=== PATIENT | male | born 1935 | race Caucasian/White ===

== ENCOUNTER 2017-01-23 18:12 | Inpatient (IN) ==
[2017-01-23] MEDS ORDERED: cefTRIAXone 1,000 MG in SODIUM CHLORIDE 0.9% 100 ML IV STA (19:08)
[2017-01-23] MEDS ORDERED: methylPREDNISolone SOD SUC 125 MG/2 ML VIAL IV STA (19:08)
[2017-01-23] MEDS ORDERED: FUROSEMIDE 100 MG/10 ML VIAL IV STA (19:08)
[2017-01-23] MEDS ORDERED: ONDANSETRON 4 MG/2 ML VIAL IV STA (19:08)
[2017-01-23] MEDS ORDERED: ALBUTEROL 2.5 MG/3 ML NEB RESP TX ONE (19:23)
[2017-01-23] MEDS ORDERED: ALBUTEROL 2.5 MG/3 ML NEB RESP TX SCH (19:30)
[2017-01-23 20:10] LABS: Basophils % 0.6 % (0.0-0.8); Eosinophils # 0.1 10*3/uL (0.0-0.87); Eosinophils % 2.2 % (0.00-10.9); Hematocrit 28.9 VOL% (42.0-52.0); Hemoglobin 9.3 GM/DL (14.0-18.0); Immature Granulocytes % 0.6 %; Immature Granulocytes Absolute 0.03 #; Lymphocytes # 1.3 10*3/uL (1.4-4.0); Lymphocytes % 28.1 % (21.2-54.2); Mean Corpuscular HGB Conc 32.2 GM/DL (32-36); Mean Corpuscular Hemoglobin 31 PG (27-34); Mean Corpuscular Volume 95.1 FL (87-102); Mean Platelet Volume 11.5 FL (9.6-12.0); Monocytes # 0.4 10*3/uL (0.11-0.8); Monocytes % 7.8 % (1.7-12.7); Neutrophils # 2.8 10*3/uL (1.4-7.4); Neutrophils % 60.7 % (38.7-73.9); Platelet Count 112 T/CUMM (130-400); Red Blood Count 3.04 MC/CUMM (3.8-5.5); Red Cell Distribution Width 15.9 % (9.3-17.3); White Blood Count 4.6 T/CUMM (4-12)
[2017-01-23 20:30] LABS: Albumin 2.1 G/DL (3.4-5.0); Bilirubin,Total 0.9 MG/DL (0.2-1.0); Calcium 8.1 MG/DL (8.5-10.1); Potassium 4.4 MMOL/L (3.5-5.1); Total Protein 5.6 G/DL (6.4-8.3); Troponin I Only 0.024 NG/ML (0.00-0.045)
[2017-01-23] MEDS ORDERED: cefTRIAXone 1,000 MG VIAL ONE (20:37)
[2017-01-23] MEDS ORDERED: FUROSEMIDE 100 MG/10 ML VIAL ONE (20:37)
[2017-01-23] MEDS ORDERED: methylPREDNISolone SOD SUC 125 MG/2 ML VIAL ONE (20:37)
[2017-01-23] MEDS ORDERED: ONDANSETRON 4 MG/2 ML VIAL ONE (20:37)
[2017-01-23 20:58] LABS: INR 1.2; PT Patient Result 12.7 SECS
[2017-01-23 21:22] LABS: Allen Test Positive
[2017-01-23 21:23] LABS: ABG Base Excess 0.3 MMOL/L (-2.5-2.5); ABG HCO3 24.7 MMOL/L (20-26); ABG Oxygen Saturation 94.6 % (95-100); ABG PCO2 38.6 MM HG (35-48); ABG PH 7.415 (7.35-7.45); ABG PO2 74.7 MM HG (80-95); ABG TCO2 22.4 MMOL/L (23-27)
[2017-01-23 22:11] LABS: Apearance,Urine CLEAR (Clear); Bilirubin,Urine Negative (Negative); Blood, Urine Negative (Negative); Glucose,Urine (UA) Negative (Negative); Ketones,Urine Negative (Negative); Mucus,Urine Occasional /LPF (Occasional); Nitrite,Urine Negative (Negative); Protein,Urine Negative; RBC,Urine <1 /HPF (0-4); Urine Color Yellow (Yellow); Urine Specific Gravity 1.012 (1.001-1.035); WBC,Urine <1 /HPF (0-6)
[2017-01-23] MEDS ORDERED: NITROGLYCERIN SL 0.4 MG TABLET SL PRN (23:03)
[2017-01-23] MEDS ORDERED: traMADol 50 MG TABLET PO PRN (23:03)
[2017-01-23] MEDS ORDERED: ACETAMINOPHEN 325 MG TABLET PO PRN (23:17)
[2017-01-23] MEDS ORDERED: ONDANSETRON 4 MG/2 ML VIAL IV PRN (23:17)
[2017-01-23] MEDS ORDERED: methylPREDNISolone SOD SUC 40 MG/1 ML VIAL ONE (23:40)
[2017-01-23] MEDS ORDERED: AZITHROMYCIN 500 MG VIAL IV ONE (23:40)
[2017-01-23] MEDS: AZITHROMYCIN INJ 500 MG in SODIUM CHLORIDE 0.9% 250 ML IV SCH (23:45)
[2017-01-23] MEDS: MONTELUKAST 10 MG TABLET PO SCH (23:50)
[2017-01-24] MEDS: methylPREDNISolone SOD SUC 40 MG/1 ML VIAL IV SCH ×3 (01:03→15:15)
[2017-01-24] MEDS: cefTRIAXone 1,000 MG in SYRINGE 1 EACH IV SCH ×2 (01:04→21:17)
[2017-01-24] MEDS: ALBUTEROL/IPRATROPIUM 3 ML NEB RESP TX SCH ×6 (01:15→19:19)
[2017-01-24 04:43] LABS: Hematocrit 27.8 VOL% (42.0-52.0); Immature Granulocytes % 0.6 %; Immature Granulocytes Absolute 0.02 #; Lymphocytes # 0.5 10*3/uL (1.4-4.0); Lymphocytes % 14.1 % (21.2-54.2); Mean Corpuscular HGB Conc 32.4 GM/DL (32-36); Mean Corpuscular Hemoglobin 31 PG (27-34); Mean Corpuscular Volume 94.6 FL (87-102); Mean Platelet Volume 11.8 FL (9.6-12.0); Monocytes % 1.2 % (1.7-12.7); Neutrophils # 2.9 10*3/uL (1.4-7.4); Neutrophils % 84.1 % (38.7-73.9); Platelet Count 109 T/CUMM (130-400); Red Blood Count 2.94 MC/CUMM (3.8-5.5); White Blood Count 3.4 T/CUMM (4-12)
[2017-01-24 05:11] LABS: Elliptocytes Few; Giant Platelets Few; Hypochromasia 1+; Lymphocytes 14 % (20-55); Platelet Estimate Decreased; Segmented Neutrophils 85 % (50-85); Total Cells Counted 100
[2017-01-24 05:16] LABS: Bilirubin,Total 0.8 MG/DL (0.2-1.0); Calcium 7.8 MG/DL (8.5-10.1); Osmolality,Calculated 285.3 MOS/KG (273-304); Potassium 4.3 MMOL/L (3.5-5.1)
[2017-01-24] MEDS: LEVOTHYROXINE 50 MCG TABLET PO SCH (06:31)
[2017-01-24] MEDS ORDERED: RIVAROXABAN 20 MG TABLET PO SCH (08:00)
[2017-01-24] MEDS ORDERED: POTASSIUM CHLORIDE 20 MEQ TABLET PO ONE (09:26)
[2017-01-24] MEDS ORDERED: methylPREDNISolone SOD SUC 40 MG/1 ML VIAL ONE (09:26)
[2017-01-24] MEDS ORDERED: ASPIRIN 325 MG TABLET ONE (09:26)
[2017-01-24] MEDS ORDERED: FUROSEMIDE 20 MG TABLET ONE (09:26)
[2017-01-24] MEDS ORDERED: PANTOPRAZOLE 40 MG TABLET PO ONE (09:26)
[2017-01-24] MEDS: CYANOCOBALAMIN 500 MCG TABLET PO SCH (09:41)
[2017-01-24] MEDS: FUROSEMIDE 20 MG TABLET PO SCH (09:41)
[2017-01-24] MEDS: PANTOPRAZOLE 40 MG TABLET PO SCH (09:41)
[2017-01-24] MEDS: ASPIRIN EC 325 MG TABLET PO SCH (09:42)
[2017-01-24] MEDS: CALCIUM (CARBONATE)/VITAMIN D 600 MG-400 UNIT TABLET PO SCH (09:42)
[2017-01-24] MEDS: POTASSIUM CHLORIDE 20 MEQ TABLET PO SCH (09:43)
[2017-01-24] MEDS: DULoxetine 30 MG CAPSULE PO SCH (09:43)
[2017-01-24] MEDS: fentaNYL 25 MCG/HR PATCH TRANSDERM SCH (15:14)
[2017-01-24] MEDS: MONTELUKAST 10 MG TABLET PO SCH (21:18)
[2017-01-25] MEDS: ALBUTEROL/IPRATROPIUM 3 ML NEB RESP TX SCH ×8 (00:18→20:17)
[2017-01-25] MEDS: AZITHROMYCIN INJ 500 MG in SODIUM CHLORIDE 0.9% 250 ML IV SCH (02:18)
[2017-01-25] MEDS: LEVOTHYROXINE 50 MCG TABLET PO SCH (08:07)
[2017-01-25] MEDS ORDERED: ALBUTEROL/IPRATROPIUM 3 ML NEB RESP TX PRN (11:01)
[2017-01-25] MEDS: methylPREDNISolone SOD SUC 40 MG/1 ML VIAL IV SCH ×4 (11:06→23:55)
[2017-01-25] MEDS: NICOTINE 14 MG/24 HR PATCH TRANSDERM SCH (14:26)
[2017-01-25] MEDS: POTASSIUM CHLORIDE 20 MEQ TABLET PO SCH (15:02)
[2017-01-25] MEDS: DULoxetine 30 MG CAPSULE PO SCH (15:02)
[2017-01-25] MEDS: FUROSEMIDE 20 MG TABLET PO SCH (15:03)
[2017-01-25] MEDS: ASPIRIN EC 325 MG TABLET PO SCH (15:03)
[2017-01-25] MEDS: CYANOCOBALAMIN 500 MCG TABLET PO SCH (15:03)
[2017-01-25] MEDS: CALCIUM (CARBONATE)/VITAMIN D 600 MG-400 UNIT TABLET PO SCH (15:03)
[2017-01-25] MEDS: POLYETHYLENE GLYCOL POWDER 17 GM PACK PO PRN (15:04)
[2017-01-25] MEDS: PANTOPRAZOLE 40 MG TABLET PO SCH (15:04)
[2017-01-25] MEDS: MONTELUKAST 10 MG TABLET PO SCH (21:32)
[2017-01-25] MEDS: cefTRIAXone 1,000 MG in SYRINGE 1 EACH IV SCH (21:34)
[2017-01-26] MEDS: AZITHROMYCIN INJ 500 MG in SODIUM CHLORIDE 0.9% 250 ML IV SCH ×2 (00:01→23:56)
[2017-01-26] MEDS: ALBUTEROL/IPRATROPIUM 3 ML NEB RESP TX SCH ×4 (01:00→20:10)
[2017-01-26] MEDS: LEVOTHYROXINE 50 MCG TABLET PO SCH (07:39)
[2017-01-26] MEDS: methylPREDNISolone SOD SUC 40 MG/1 ML VIAL IV SCH ×3 (07:40→23:52)
[2017-01-26 08:32] LABS: Hematocrit 28.3 VOL% (42.0-52.0)
[2017-01-26] MEDS: CALCIUM (CARBONATE)/VITAMIN D 600 MG-400 UNIT TABLET PO SCH (09:06)
[2017-01-26] MEDS: POTASSIUM CHLORIDE 20 MEQ TABLET PO SCH (09:07)
[2017-01-26] MEDS: NICOTINE 14 MG/24 HR PATCH TRANSDERM SCH (09:07)
[2017-01-26] MEDS: PANTOPRAZOLE 40 MG TABLET PO SCH (09:07)
[2017-01-26] MEDS: POLYETHYLENE GLYCOL POWDER 17 GM PACK PO PRN (09:07)
[2017-01-26] MEDS: FUROSEMIDE 20 MG TABLET PO SCH (09:07)
[2017-01-26] MEDS: DULoxetine 30 MG CAPSULE PO SCH (09:07)
[2017-01-26] MEDS: CYANOCOBALAMIN 500 MCG TABLET PO SCH (09:07)
[2017-01-26] MEDS: ASPIRIN EC 325 MG TABLET PO SCH (09:37)
[2017-01-26] MEDS ORDERED: MAGNESIUM HYDROXIDE SUSP 30 ML UDCUP PO ONE (11:48)
[2017-01-26] MEDS ORDERED: LORazepam 0.5 MG TABLET PO PRN (14:10)
[2017-01-26] MEDS: cefTRIAXone 1,000 MG in SYRINGE 1 EACH IV SCH (21:20)
[2017-01-26] MEDS: MONTELUKAST 10 MG TABLET PO SCH (21:26)
[2017-01-27] MEDS: ALBUTEROL/IPRATROPIUM 3 ML NEB RESP TX SCH ×4 (00:50→19:50)
[2017-01-27] MEDS: LEVOTHYROXINE 50 MCG TABLET PO SCH (06:49)
[2017-01-27] MEDS: methylPREDNISolone SOD SUC 40 MG/1 ML VIAL IV SCH ×3 (06:50→22:59)
[2017-01-27] MEDS ORDERED: ERGOCALCIFEROL 50,000 UNIT CAPSULE PO SCH (09:00)
[2017-01-27] MEDS ORDERED: BETAMETH SODIUM PHOS/ACETATE 30 MG/5 ML VIAL ONE (09:56)
[2017-01-27] MEDS: DULoxetine 30 MG CAPSULE PO SCH (10:02)
[2017-01-27] MEDS: CALCIUM (CARBONATE)/VITAMIN D 600 MG-400 UNIT TABLET PO SCH (10:02)
[2017-01-27] MEDS: POTASSIUM CHLORIDE 20 MEQ TABLET PO SCH (10:03)
[2017-01-27] MEDS: PANTOPRAZOLE 40 MG TABLET PO SCH (10:03)
[2017-01-27] MEDS: FUROSEMIDE 20 MG TABLET PO SCH (10:03)
[2017-01-27] MEDS: CYANOCOBALAMIN 500 MCG TABLET PO SCH (10:03)
[2017-01-27] MEDS: NICOTINE 21 MG/24 HR PATCH TRANSDERM SCH (13:41)
[2017-01-27] MEDS: fentaNYL 25 MCG/HR PATCH TRANSDERM SCH (13:42)
[2017-01-27] MEDS: cefTRIAXone 1,000 MG in SYRINGE 1 EACH IV SCH (20:28)
[2017-01-27] MEDS: MONTELUKAST 10 MG TABLET PO SCH (20:33)
[2017-01-27] MEDS: AZITHROMYCIN INJ 500 MG in SODIUM CHLORIDE 0.9% 250 ML IV SCH (23:00)
[2017-01-28] MEDS: ALBUTEROL/IPRATROPIUM 3 ML NEB RESP TX SCH ×2 (00:45→07:21)
[2017-01-28 04:31] LABS: Hematocrit 28.1 VOL% (42.0-52.0); Immature Granulocytes % 0.8 %; Immature Granulocytes Absolute 0.04 #; Lymphocytes # 0.6 10*3/uL (1.4-4.0); Lymphocytes % 11.5 % (21.2-54.2); Mean Corpuscular Hemoglobin 30 PG (27-34); Mean Corpuscular Volume 94.9 FL (87-102); Mean Platelet Volume 11.1 FL (9.6-12.0); Monocytes # 0.2 10*3/uL (0.11-0.8); Monocytes % 3.5 % (1.7-12.7); Neutrophils % 84.2 % (38.7-73.9); Platelet Count 93 T/CUMM (130-400); Red Blood Count 2.96 MC/CUMM (3.8-5.5); Red Cell Distribution Width 15.9 % (9.3-17.3); White Blood Count 4.8 T/CUMM (4-12)
[2017-01-28 04:56] LABS: Platelet Estimate Decreased
[2017-01-28 05:25] LABS: Albumin 2.2 G/DL (3.4-5.0); Magnesium 2.8 MG/DL (1.8-2.4); Osmolality,Calculated 295.8 MOS/KG (273-304); Phosphorous 3.3 MG/DL (2.5-4.9); Potassium 4.6 MMOL/L (3.5-5.1); Total Protein 5.6 G/DL (6.4-8.3)
[2017-01-28] MEDS: LEVOTHYROXINE 50 MCG TABLET PO SCH (06:00)
[2017-01-28] MEDS: POTASSIUM CHLORIDE 20 MEQ TABLET PO SCH (09:58)
[2017-01-28] MEDS: CYANOCOBALAMIN 500 MCG TABLET PO SCH (09:58)
[2017-01-28] MEDS: CALCIUM (CARBONATE)/VITAMIN D 600 MG-400 UNIT TABLET PO SCH (09:58)
[2017-01-28] MEDS: methylPREDNISolone SOD SUC 40 MG/1 ML VIAL IV SCH (09:58)
[2017-01-28] MEDS: DULoxetine 30 MG CAPSULE PO SCH (09:59)
[2017-01-28] MEDS: NICOTINE 21 MG/24 HR PATCH TRANSDERM SCH (09:59)
[2017-01-28] MEDS: PANTOPRAZOLE 40 MG TABLET PO SCH (09:59)
[2017-01-28] MEDS: FUROSEMIDE 20 MG TABLET PO SCH (10:00)
[2017-01-28 13:43] VITALS: BP 130/73
== END 2017-01-28 13:48 | disposition home health service (06) | DRG 477 ==
LOC: EDUNIT# → N.ED 18:12 → N.EDINP 21:55 → N.5E 01-24 12:10
PROVIDERS: ADMIT Hospitalist; ATTEND Hospitalist